=== PATIENT | male | born 1935 | race Caucasian/White ===

== ENCOUNTER 2016-09-21 11:00 | Emergency (ER) | payer MEDICARE ==
[2016-09-21 11:14] VITALS: BP 126/47
[2016-09-21] MEDS ORDERED: Lidocaine 1% MPF* 2 ML VIAL INJ ONE ×2 (12:45→12:58)
[2016-09-21] MEDS ORDERED: Tetan/Diph/Pertus SYR(Tdap)* 0.5 ML SYR(BOOSTRIX) use SYR IM ONE (12:46)
--- NOTE | 2016-09-21 14:48 | RAD ---
INDICATION: Laceration over proximal ulna after a slip and fall injury. TECHNIQUE: 2 views of the left forearm were obtained. FINDINGS: No subcutaneous foreign bodies are identified. On the lateral view there is disruption of the proximal posterior dermis with appearance of underlying subcutaneous gas in keeping with the patient's history of laceration. The bones are normal alignment. Joint spaces appear maintained. No fracture is seen. IMPRESSION: Evidence of soft tissue injury without underlying bony fracture or solid subcutaneous foreign body.
--- NOTE | 2016-09-21 14:56 | UC ---
Donavan Cortez Benjamin, scribed for Juliette Akbar DO on 09/21/16 at 1241 . Laceration HPI - HPI Summary HPI Summary: 81yo male presents with a laceration on his left forearm from falling on a rock during hiking today. Pt denies any pain at rest. Last tetanus shot was 07/30. 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 - History Of Current Complaint Chief Complaint: UCLaceration Stated Complaint: ARM LACERATION Time Seen by Provider: 09/21/16 12:28 Hx Obtained From: Patient Laceration Location: Arm Mechanism Of Injury: Sharp Trauma Onset/Duration: Sudden Onset, Lasting Hours, Still Present Severity: Mild Aggravating Factors: Nothing - Allergies/Home Medications Allergies/Adverse Reactions: Allergies Allergy/AdvReac Type Severity Reaction Status Date / Time No Known Allergies Allergy Verified 09/21/16 11:14 Home Medications: Home Medications Ascorbic Acid [Vitamin C] 1,000 mg PO DAILY 09/21/16 [History Confirmed 09/21/16 ] Aspirin [Aspirin 81 MG TAB] 1 tab PO DAILY 09/21/16 [History Confirmed 09/21/16] Lisinopril TAB* [Prinivil TAB 5 MG*] 20 mg PO DAILY 09/21/16 [History Confirmed 09/21/16] Simvastatin [Zocor 5 MG-] 20 mg PO DAILY 09/21/16 [History Confirmed 09/21/16] PMH/Surg Hx/FS Hx/Imm Hx Previously Healthy: No Cardiovascular History: Cardiac Disease Neurological History: Other Other Neurological History: hydrocephalus Cancer History: Other Other Cancer History: melanoma - Surgical History Surgical History: Yes Surgery Procedure, Year, and Place: MELONOMA REMOVED FROM LEG. TRIPLE BYPASS - Family History Known Family History: Positive: Cardiac Disease Negative: Hypertension - Social History Occupation: Retired Lives: Alone Alcohol Use: Weekly Substance Use Type: None Smoking Status (MU): Never Smoked Tobacco Review of Systems Constitutional: Negative Skin: Other - left forearm laceration Eyes: Negative ENT: Negative Respiratory: Negative Cardiovascular: Negative Gastrointestinal: Negative Genitourinary: Negative Motor: Negative Neurovascular: Negative Musculoskeletal: Negative Neurological: Negative Psychological: Negative All Other Systems Reviewed And Are Negative: Yes Physical Exam Triage Information Reviewed: Yes Appearance: Well-Appearing, No Pain Distress, Well-Nourished Vital Signs: Initial Vital Signs Temp 98.0 F 09/21/16 11:13 Pulse 76 09/21/16 11:13 Resp 16 09/21/16 11:13 BP 126/47 09/21/16 11:13 Pulse Ox 98 09/21/16 11:13 Vital Signs Reviewed: Yes Eyes: Positive: Conjunctiva Clear. Negative: Discharge ENT: Positive: Hearing grossly normal. Negative: Muffled/hoarse voice Neck exam: Normal Neck: Positive: Supple Respiratory: Positive: Lungs clear, Normal breath sounds, No respiratory distress, No accessory muscle use Cardiovascular: Positive: RRR, No Murmur Musculoskeletal Exam: Normal Musculoskeletal: Positive: Strength Intact, ROM Intact, Other: - TENDER OVER PROXIMAL ULNA(JUST PROXIMAL TO LAC) Neurological: Positive: Alert, Muscle Tone Normal Psychological: Positive: Age Appropriate Behavior Skin: Positive: Other - laceration on left forearm. Laceration Repair - Laceration Repair 1 Description: Irregular - FLAP WITH STELLATE END POINTS Laceration Size After Repair: Length (cm) - 4, Width (mm) - 1, Depth (mm) - 1 Modified For Repair: No Type Injection: Local Anesthesia Used: 1.0% Lido Cleansing Completed Via Routine Prep: Yes Irrigation With Pressure Irrigation Device: Yes Closure Material: Sutures - 7 Closure Method: Single Layer Suture Of: Skin Suture Type: Nylon Laceration Course/Dx - Differential Dx - Laceration/Wound Differental Diagnoses: Avulsion, Fracture, Laceration Provider Diagnoses: LACERATION Discharge - Discharge Plan Condition: Stable Disposition: HOME Patient Education Materials: Laceration (ED) Referrals: No Primary Care Phys,NOPCP [Primary Care Provider] - Additional Instructions: FOLLOW UP RETURN HERE OR GO TO YOUR PCP FOR SUTURE REMOVAL IN 7-9 DAYS. The documentation as recorded by the Donavan bonilla Benjamin accurately reflects the service I personally performed and the decisions made by , Juliette Akbar DO.
== END 2016-09-21 14:51 | disposition home or self-care (01) ==
LOC: UCEAST 11:00
DX: S51.812A Laceration without foreign body of left forearm, initial encounter (principal); W18.30XA Fall on same level, unspecified, initial encounter; Y93.01 Activity, walking, marching and hiking
CPT/HCPCS: 12001; 90715; 99201; G0463